=== PATIENT | female | born 1990 | race Caucasian/White ===

== ENCOUNTER 2019-03-07 16:20 | Emergency (ER) | payer OTHER ==
[~2019-03-07] VITALS: Ht 157.5 cm; Wt 77.1 kg
[2019-03-07 16:33] VITALS: BP 122/77
--- NOTE | 2019-03-07 16:46 | NUR ---
PT TRIAGED, SENT BACK TO LOBBY AWAITING FOR BED
--- NOTE | 2019-03-07 17:31 | NUR ---
PT TAKEN TO BED 2.
--- NOTE | 2019-03-07 17:33 | NUR ---
PLEURITIC PAIN ON L LOWER RIB REGION, X3 DAYS, EXACERBATED BY DEEP BREATHING AND COUGHING. PT HAS HAD A COUGH, X2 MONTHS. DENIES FEVER, N/V. DENIES MED HX; RX ALBUTEROL
[2019-03-07] MEDS ORDERED: DEXAMETHASONE 10 MG/ML VIAL IM ONE (18:05)
[2019-03-07 18:34] VITALS: BP 120/72
--- NOTE | 2019-03-07 18:34 | NUR ---
Patient discharged with v/s stable. Written and verbal after care instructions given and explained. Patient alert, oriented and verbalized understanding of instructions. Ambulatory with steady gait. All questions addressed prior to discharge. ID band removed. Patient advised to follow up with PMD. Rx of ACETAMINOPHEN & OMEPRAZOLE given. Patient educated on indication of medication including possible reaction and side effects. Opportunity to ask questions provided and answered.
== END 2019-03-07 18:34 | disposition home or self-care (01) ==
LOC: MED 16:20
DX: M94.0 Chondrocostal junction syndrome [Tietze] (principal); K21.9 Gastro-esophageal reflux disease without esophagitis
CPT/HCPCS: 71046; 96372; 99283; J1100

== ENCOUNTER 2020-04-22 11:58 | Emergency (ER) | payer OTHER ==
[~2020-04-22] VITALS: Ht 160 cm; Wt 85.7 kg
[2020-04-22 12:04] VITALS: BP 138/88
[2020-04-22 12:50] VITALS: BP 138/88
== END 2020-04-22 12:51 | disposition home or self-care (01) ==
LOC: MED 11:58
DX: S02.92XA Unspecified fracture of facial bones, initial encounter for closed fracture (principal); H53.149 Visual discomfort, unspecified; V86.99XA Unspecified occupant of other special all-terrain or other off-road motor vehicle injured in nontraffic accident, initial encounter; Y93.89 Activity, other specified; Y92.89 Other specified places as the place of occurrence of the external cause; Y99.8 Other external cause status
CPT/HCPCS: 99283